=== PATIENT | female | born 1980 | race Two or more races ===

== ENCOUNTER 2017-11-20 08:08 | Outpatient (CLI) | payer OTHER ==
[~2017-11-20 08:08] MED LIST: CIPRO500 MG PO; COUMADIN5 MG; COZAAR100 MG; COZAAR100 MG PO; COZAAR50 MG PO; CRESTOR5 MG PO; FIORICET 50-301 EACH PO; FOLIC ACID1 MG; GLUCOPHAGE XR500 MG; HUMIRA40 MG/0.1; HYDROCHLOROTH12.5 M1 PO; HYDROCHLOROTHIA25 MG PO; HYDROXYCHLOROQ200 MG; HYDROXYCHLOROQ200 MG PO; INTESTINEX1 CA1 PO; LEVOXYL137 MCG; LEVSIN0.125 MG PO; LOPRESSOR25 MG; METFORMIN HCL500 MG PO; METHOTREXATE25 MG/M3; NAPROXEN500 MG PO; NEURONTIN300 MG PO; NORVASC5 MG PO; ORENCIA125 MG/1 M; PERCOCET 5/3251 TAB PO; PRAVASTATIN SOD40 MG; PRAVASTATIN SOD40 MG PO; PROTONIX40 MG PO; RECTICARE30 GM TP; RESTORIL30 M1; SYNTHROID100 MCG PO; SYNTHROID137 MCG PO; TOPROL XL200 MG PO; TOPROL XL50 M1; TOPROL XL50 M1 PO; TOPROL XL50 MG PO; TRAZODONE HCL50 MG PO; URIN D.S. TABLE1 TAB PO; WELLBUTRIN SR150 MG; WELLBUTRIN75 MG; ZANTAC300 MG PO; ZOFRAN4 MG PO
== END 2017-11-20 08:16 | disposition home or self-care (01) ==
LOC: LAB 08:08
DX: M06.09 Rheumatoid arthritis without rheumatoid factor, multiple sites (principal)

== ENCOUNTER → 2018-01-01 07:55 | Outpatient (CLI) | payer OTHER ==
[~2018-01-01 07:55] MED LIST changes: +ADEMPAS2.5 MG PO; +FOLIC ACID1 MG PO; +LEVOXYL75 MCG PO; +METHROTEXATE; +WELLBUTRIN SR150 MG PO
== END | disposition home or self-care (01) ==
LOC: LAB 07:55
DX: E66.01 Morbid (severe) obesity due to excess calories (principal)

== ENCOUNTER 2018-01-17 05:55 | Inpatient (IN) | payer OTHER ==
[~2018-01-17] VITALS: Ht 160 cm; Wt 61.2 kg
== END 2018-01-18 15:41 | disposition home or self-care (01) | DRG 581 ==
LOC: CIR.AMB 05:55 → SURH 15:35 → O/R 15:35 → SURH 15:54
PROVIDERS: Plastic Surgery
PROC: 0J080ZZ Alteration of Abdomen Subcutaneous Tissue and Fascia, Open Approach (ICD-10-PCS; principal; 2018-01-17 07:00)
DX: L98.7 Excessive and redundant skin and subcutaneous tissue (principal); E66.01 Morbid (severe) obesity due to excess calories; R63.4 Abnormal weight loss; M62.08 Separation of muscle (nontraumatic), other site; M79.3 Panniculitis, unspecified

== ENCOUNTER 2018-03-19 08:32 | Outpatient (CLI) | payer OTHER | END 2018-03-19 08:38 | disposition home or self-care (01) | LOC: LAB 08:32 | DX: E11.9 Type 2 diabetes mellitus without complications (principal) ==

== ENCOUNTER 2018-06-21 08:35 | Outpatient (CLI) | payer OTHER | END 2018-06-21 08:42 | disposition home or self-care (01) | LOC: NUCLEAR 08:35 | DX: M06.09 Rheumatoid arthritis without rheumatoid factor, multiple sites (principal) | CPT/HCPCS: 78315; A9503 ==

== ENCOUNTER 2018-06-25 08:29 | Outpatient (CLI) | payer OTHER | END 2018-06-25 08:43 | disposition home or self-care (01) | LOC: LAB 08:29 | DX: I27.0 Primary pulmonary hypertension (principal); I50.20 Unspecified systolic (congestive) heart failure; M06.09 Rheumatoid arthritis without rheumatoid factor, multiple sites; M06.4 Inflammatory polyarthropathy ==

== ENCOUNTER 2018-10-29 08:42 | Outpatient (CLI) | payer OTHER | END 2018-10-29 16:06 | disposition home or self-care (01) | LOC: LAB 08:42 | DX: M06.09 Rheumatoid arthritis without rheumatoid factor, multiple sites (principal) ==

== ENCOUNTER 2019-02-11 08:43 | Outpatient (CLI) | payer OTHER | END 2019-02-11 15:00 | disposition home or self-care (01) | LOC: LAB 08:43 | DX: M06.09 Rheumatoid arthritis without rheumatoid factor, multiple sites (principal) ==

== ENCOUNTER → 2019-06-24 08:09 | Outpatient (CLI) | payer OTHER | END | disposition home or self-care (01) | LOC: LAB 08:09 | DX: M06.09 Rheumatoid arthritis without rheumatoid factor, multiple sites (principal) ==

== ENCOUNTER 2020-09-24 10:27 | Outpatient (CLI) | payer OTHER | END 2020-09-24 10:35 | disposition home or self-care (01) | LOC: MRI 10:27 | PROVIDERS: ATTEND Orthopaedic Surgery Orthopaedic Surgery of the Spine | DX: M50.23 Other cervical disc displacement, cervicothoracic region (principal); M50.00 Cervical disc disorder with myelopathy, unspecified cervical region | CPT/HCPCS: 72141 ==

== ENCOUNTER 2020-11-22 07:07 | Outpatient (CLI) | payer OTHER | END 2020-11-22 07:14 | disposition home or self-care (01) | LOC: MRI 07:07 | PROVIDERS: ATTEND Radiology Diagnostic Radiology | DX: C44.501 Unspecified malignant neoplasm of skin of breast (principal) | CPT/HCPCS: 70552 ==

== ENCOUNTER 2020-12-03 08:23 | Outpatient (CLI) | payer OTHER | END 2020-12-03 08:24 | disposition home or self-care (01) | LOC: NUCLEAR 08:23 | DX: I27.20 Pulmonary hypertension, unspecified (principal) ==

== ENCOUNTER 2023-01-20 12:01 | Outpatient (CLI) | payer OTHER | END 2023-01-20 12:04 | disposition home or self-care (01) | LOC: NUCLEAR 12:01 | PROVIDERS: ATTEND Internal Medicine Pulmonary Disease | DX: I27.2 Other secondary pulmonary hypertension (principal); I27.24 Chronic thromboembolic pulmonary hypertension; R06.02 Shortness of breath; J96.11 Chronic respiratory failure with hypoxia ==

== ENCOUNTER 2023-01-20 13:13 | Outpatient (CLI) | payer OTHER | END 2023-01-20 13:14 | disposition home or self-care (01) | LOC: LAB 13:13 | PROVIDERS: ATTEND Internal Medicine Pulmonary Disease | DX: I27.0 Primary pulmonary hypertension (principal) ==